=== PATIENT | female | born 1960 | race African-American/Black ===

== ENCOUNTER 2020-10-25 23:06 | Inpatient (IN) | payer OTHER ==
[~2020-10-25] VITALS: Ht 182.9 cm; Wt 102.1 kg
[~2020-10-25 23:06] MED LIST: ALBU6.7H9 INH; ATOR10TA MT; FLUT1DIS3 INH; GABA-529 MT; LEVOTHYROXINE PO; PHEN100C4 PO; PRED10TA PO; PROM6.254 MT; QUET100T MT; TRAZ-251 MT
[2020-10-25] MEDS ORDERED: IPRATROPIUM BROMIDE (0.02%) 0.5MG/2.5ML NEB HHN STA (23:27)
[2020-10-25] MEDS ORDERED: ALBUTEROL (0.083%) 2.5MG/3ML NEB HHN STA (23:27)
[2020-10-25] MEDS ORDERED: METHYLPREDNISOLONE SOD SUCC 125 MG/2 ML VIAL IV STA (23:27)
[2020-10-25] MEDS ORDERED: MAGNESIUM 2 G PREMIX 50 ML IV ONE (23:30)
[2020-10-25] MEDS ORDERED: ASPIRIN 81MG TABLET PO ONE (23:30)
[2020-10-26 00:06] LABS: BASOPHILS % 0.6 % (0.0-2.0); EOSINOPHILS % 2.1 % (0.0-5.0); HEMATOCRIT. 40.4 % (36.0-48.0); HEMOGLOBIN. 13.9 g/dL (12.0-16.0); LYMPHOCYTES % 39.2 % (20.0-50.0); MEAN CORPUSCULAR HEMOGLOBIN 30.7 pg (28.0-32.0); MEAN CORPUSCULAR VOLUME 89.2 fL (81.0-99.0); MEAN PLATELET VOLUME 7.4 fl (7.4-10.4); MONOCYTES % 6.1 % (2.0-8.0); PLATELET 277 x1000/uL (130-400); RED BLOOD CELL COUNT 4.53 mill/uL (4.2-5.4); RED CELL DISTRIBUTION WIDTH 12.9 % (11.6-14.6)
[2020-10-26 00:13] LABS: CHLORIDE 110 mEq/L (98-107)
[2020-10-26] MEDS ORDERED: DOCUSATE SODIUM 100MG CAPSULE PO PRN (09:15)
[2020-10-26] MEDS ORDERED: ACETAMINOPHEN 325MG TABLET PO PRN ×2 (09:15)
[2020-10-26] MEDS ORDERED: CLONIDINE 0.1MG TABLET PO PRN (09:15)
[2020-10-26] MEDS ORDERED: LORAZEPAM 0.5MG TABLET PO PRN (09:15)
[2020-10-26] MEDS ORDERED: ONDANSETRON HCL 4MG/2ML INJ IV PRN (09:15)
[2020-10-26] MEDS ORDERED: HYDROCODONE/ACETAMINOPHEN 5/325MG TABLET PO PRN (09:15)
[2020-10-26] MEDS ORDERED: IPRATROPIUM/ALBUTEROL 0.5-3(2.5)MG/3ML NEB HHN PRN (09:15)
[2020-10-26] MEDS ORDERED: METHYLPREDNISOLONE SOD SUCC 40 MG/ML VIAL IV SCH (10:00)
[2020-10-26 13:13] VITALS: BP 118/75
[2020-10-26] MEDS ORDERED: NICOTINE 14MG PATCH TD SCH (14:00)
[2020-10-26] MEDS ORDERED: LEVOTHYROXINE SODIUM 175MCG TABLET PO SCH ×2 (14:00→15:00)
[2020-10-26] MEDS ORDERED: GABAPENTIN 100MG CAPSULE PO SCH (14:00)
[2020-10-26] MEDS ORDERED: PHENYTOIN SODIUM EXTENDED 100MG CAPSULE PO SCH (21:00)
[2020-10-26] MEDS ORDERED: QUETIAPINE FUMARATE 50MG TABLET PO SCH (21:00)
[2020-10-26] MEDS ORDERED: ATORVASTATIN CALCIUM 10MG TABLET PO SCH (21:00)
[2020-10-26] MEDS ORDERED: TRAZODONE HCL 50MG TABLET PO SCH (21:00)
[2020-10-27 09:01] LABS: BG SAMPLE SITE Right Radial
[2020-10-27 09:02] LABS: BG VENT MODE NASAL CANNULA
[2020-10-27 09:03] LABS: BG FRACTION INSPIRED OXYGEN 36; BG HCO3 ACT 25.2 mmol/L (22.0-26.0); BG PCO2 39.8 mmHg (35.0-45.0); BG PH 7.419 (7.350-7.450); BG PO2 72.8 mmHg (75.0-100.0)
[2020-10-27 09:04] LABS: BG BASE EXCESS 0.7 mmol/L (-2.0-2.0); BG OXYGEN SATURATION 95.1 % (92.0-98.5); BG OXYHEMOGLOBIN 89.8 % (94.0-97.0); BG TOTAL HEMOGLOBIN 13.9 g/dL (12.0-18.0)
[2020-10-27 09:05] LABS: BG CARBOXYHEMOGLOBIN 5.3 % (0.5-1.5); BG DEOXYHEMOGLOBIN 4.6 % (0.0-5.0); BG METHEMOGLOBIN 0.3 % (0.0-1.5)
== END 2020-10-26 15:00 | disposition left against medical advice (07) | DRG 144 ==
LOC: ER 23:06 → 5WST 10-26 05:31 → EDBEDREQ 10-26 05:38 → EDBEDREQTM 10-26 05:38 → ENRESERV 10-26 07:15
PROVIDERS: ADMIT Internal Medicine; ATTEND Internal Medicine
DX: J68.0 Bronchitis and pneumonitis due to chemicals, gases, fumes and vapors (principal); J96.00 Acute respiratory failure, unspecified whether with hypoxia or hypercapnia; E03.9 Hypothyroidism, unspecified; E66.9 Obesity, unspecified; E04.2 Nontoxic multinodular goiter; F41.9 Anxiety disorder, unspecified; I10 Essential (primary) hypertension; Z68.30 Body mass index [BMI] 30.0-30.9, adult; Z72.0 Tobacco use; Z79.51 Long term (current) use of inhaled steroids; Z79.899 Other long term (current) drug therapy; Z71.6 Tobacco abuse counseling
CPT/HCPCS: 36415; 36600; 71045; 80053; 82375; 82805; 83880; 84484; 85025; 93005; 99285; J2920; J2930; J3475

== ENCOUNTER 2023-09-08 18:33 | Emergency (ER) | payer OTHER ==
[~2023-09-08] VITALS: Ht 182.9 cm; Wt 104.0 kg
[~2023-09-08 18:33] MED LIST changes: +ALBU6.7H3 INH; -ALBU6.7H9 INH; +PROM6.2527 MT; -PROM6.254 MT
[2023-09-09] MEDS ORDERED: IPRATROPIUM/ALBUTEROL 0.5-3(2.5)MG/3ML NEB HHN ONE
[2023-09-09] MEDS ORDERED: ALBUTEROL (0.083%) 2.5MG/3ML NEB HHN ONE
[2023-09-09] MEDS ORDERED: PREDNISONE 20MG TABLET PO ONE
[2023-09-09] MEDS: ALBUTEROL (0.083%) 2.5MG/3ML NEB HHN NR (02:30)
[2023-09-09 02:36] VITALS: PULSE 88; RESP 18; O2SAT 93
[2023-09-09] MEDS: IPRATROPIUM/ALBUTEROL 0.5-3(2.5)MG/3ML NEB HHN NR (02:36)
[2023-09-09] MEDS: PREDNISONE 20MG TABLET PO NR (03:45)
[2023-09-09 08:00] VITALS: BP 138/79; PULSE 85; RESP 18; TEMP 98.6
== END 2023-09-09 16:30 | disposition left against medical advice (07) ==
LOC: ER 18:33
DX: J44.9 Chronic obstructive pulmonary disease, unspecified (principal); F17.200 Nicotine dependence, unspecified, uncomplicated; Z98.890 Other specified postprocedural states
CPT/HCPCS: 99283; 71045; 94640; 93005; J7512; Z7610 ×3

== ENCOUNTER 2023-09-11 16:13 | Emergency (ER) | payer OTHER | END 2023-09-11 18:35 | disposition left against medical advice (07) | LOC: ER 16:13 | DX: R68.89 Other general symptoms and signs (principal); Z53.21 Procedure and treatment not carried out due to patient leaving prior to being seen by health care provider ==

== ENCOUNTER 2023-09-29 17:37 | Emergency (ER) | payer OTHER ==
[~2023-09-29] VITALS: Ht 172.7 cm; Wt 100.0 kg
[2023-09-29 17:38] VITALS: O2SAT 98
[2023-09-29 17:44] VITALS: TEMP 98.6
[2023-09-29 18:25] LABS: BASOPHILS % 0.9 % (0.0-2.0); EOSINOPHILS % 0.6 % (0.0-5.0); HEMOGLOBIN. 12.5 g/dL (12.0-16.0); LYMPHOCYTES % 22.1 % (20.0-50.0); MEAN CORPUSCULAR HEMOGLOBIN 30.5 pg (28.0-32.0); MEAN CORPUSCULAR HGB CONC 33.8 g/dL (31.0-37.0); MEAN CORPUSCULAR VOLUME 90.3 fL (81.0-99.0); MEAN PLATELET VOLUME 6.9 fl (7.4-10.4); MONOCYTES % 6.1 % (2.0-8.0); NEUTROPHILS % 70.3 % (40.0-76.0); PLATELET 568 x1000/uL (130-400); RED BLOOD CELL COUNT 4.09 mill/uL (4.2-5.4); RED CELL DISTRIBUTION WIDTH 13.5 % (11.6-14.6); WHITE BLOOD COUNT 6.9 x1000/uL (4.5-11.0)
[2023-09-29 18:30] LABS: CHLORIDE 104 mEq/L (98-107); POTASSIUM 4.3 mEq/L (3.5-5.1); SODIUM 139 mEq/L (136-145)
[2023-09-29 18:31] LABS: CALCIUM 10.4 mg/dL (8.7-10.4); CARBON DIOXIDE 28 mEq/L (21-32)
[2023-09-29 18:36] LABS: CREATININE 0.8 mg/dL (0.6-1.0); GLUCOSE 101 mg/dL (70-105); UREA NITROGEN BLOOD 14 mg/dL (9-23)
[2023-09-29] MEDS ORDERED: APIX5TAB MT (21:39)
[2023-09-29] MEDS ORDERED: ALBU6.7H15 INH (21:39)
[2023-09-29 22:17] VITALS: BP 118/88; PULSE 93; RESP 17
== END 2023-09-30 00:57 | disposition home or self-care (01) ==
LOC: ER 17:37
DX: J44.1 Chronic obstructive pulmonary disease with (acute) exacerbation (principal); I82.501 Chronic embolism and thrombosis of unspecified deep veins of right lower extremity; F17.210 Nicotine dependence, cigarettes, uncomplicated; Z79.899 Other long term (current) drug therapy
CPT/HCPCS: 36415; 71045; 80048; 85025; 93005; 99285; 99406

== ENCOUNTER 2023-09-30 01:38 | Emergency (ER) | payer OTHER ==
[~2023-09-30] VITALS: Ht 182.9 cm; Wt 92.0 kg
[~2023-09-30 01:38] MED LIST changes: +ALBU6.7H15 INH; +APIX5TAB MT
[2023-09-30 01:43] VITALS: BP 136/77; PULSE 98; RESP 16; TEMP 98; O2SAT 96
== END 2023-09-30 07:40 | disposition home or self-care (01) ==
LOC: ER 01:38
DX: I82.591 Chronic embolism and thrombosis of other specified deep vein of right lower extremity (principal); J44.9 Chronic obstructive pulmonary disease, unspecified; F19.90 Other psychoactive substance use, unspecified, uncomplicated
CPT/HCPCS: 99281

== ENCOUNTER 2023-09-30 11:34 | Emergency (ER) | payer OTHER ==
[~2023-09-30] VITALS: Ht 172.7 cm; Wt 75.0 kg
[2023-09-30 11:37] VITALS: BP 142/86; PULSE 100; TEMP 98.4; O2SAT 98
[2023-09-30 12:36] LABS: BASOPHILS % 0.5 % (0.0-2.0); EOSINOPHILS % 1.8 % (0.0-5.0); HEMATOCRIT. 38.1 % (36.0-48.0); HEMOGLOBIN. 13.1 g/dL (12.0-16.0); LYMPHOCYTES % 33.1 % (20.0-50.0); MEAN CORPUSCULAR HEMOGLOBIN 30.5 pg (28.0-32.0); MEAN CORPUSCULAR HGB CONC 34.4 g/dL (31.0-37.0); MEAN CORPUSCULAR VOLUME 88.6 fL (81.0-99.0); MEAN PLATELET VOLUME 6.5 fl (7.4-10.4); NEUTROPHILS % 55.6 % (40.0-76.0); PLATELET 547 x1000/uL (130-400); RED CELL DISTRIBUTION WIDTH 13.5 % (11.6-14.6)
[2023-09-30 12:41] LABS: CHLORIDE 105 mEq/L (98-107); SODIUM 139 mEq/L (136-145)
[2023-09-30 12:42] LABS: CALCIUM 10.5 mg/dL (8.7-10.4); CARBON DIOXIDE 26 mEq/L (21-32)
[2023-09-30 12:47] LABS: CREATININE 0.6 mg/dL (0.6-1.0); GLUCOSE 101 mg/dL (70-105); UREA NITROGEN BLOOD 10 mg/dL (9-23)
[2023-09-30 12:49] LABS: ALANINE AMINOTRANSFERASE 33 IU/L (10-49); ASPARTATE AMINOTRANSFERASE 27 IU/L (<34); BILIRUBIN TOTAL 0.5 mg/dL (0.1-1.0)
[2023-09-30 12:54] LABS: TROPONIN I HIGH SENSITIVITY < 4 ng/L (3.0-34)
[2023-09-30] MEDS: ACETAMINOPHEN 325MG TABLET PO ONE (14:49)
[2023-09-30 15:30] VITALS: RESP 17
== END 2023-09-30 15:53 | disposition home or self-care (01) ==
LOC: ER 11:36
DX: I82.401 Acute embolism and thrombosis of unspecified deep veins of right lower extremity (principal); J44.9 Chronic obstructive pulmonary disease, unspecified; Z79.899 Other long term (current) drug therapy
CPT/HCPCS: 36415; 80053; 84484; 85025; 93971; 99284

== ENCOUNTER 2023-10-03 01:55 | Emergency (ER) | payer OTHER ==
[~2023-10-03] VITALS: Ht 180.3 cm; Wt 82.0 kg
[2023-10-03 02:24] VITALS: BP 114/64; PULSE 88; RESP 18; TEMP 98.2; O2SAT 98
[2023-10-03 03:32] LABS: BASOPHILS % 1.3 % (0.0-2.0); EOSINOPHILS % 3.2 % (0.0-5.0); HEMATOCRIT. 36.6 % (36.0-48.0); HEMOGLOBIN. 12.5 g/dL (12.0-16.0); LYMPHOCYTES % 39.2 % (20.0-50.0); MEAN CORPUSCULAR HEMOGLOBIN 30.4 pg (28.0-32.0); MEAN CORPUSCULAR HGB CONC 34.2 g/dL (31.0-37.0); MEAN CORPUSCULAR VOLUME 88.9 fL (81.0-99.0); MEAN PLATELET VOLUME 6.9 fl (7.4-10.4); MONOCYTES % 9.6 % (2.0-8.0); NEUTROPHILS % 46.7 % (40.0-76.0); PLATELET 485 x1000/uL (130-400); RED BLOOD CELL COUNT 4.11 mill/uL (4.2-5.4); RED CELL DISTRIBUTION WIDTH 13.4 % (11.6-14.6); WHITE BLOOD COUNT 7.7 x1000/uL (4.5-11.0)
[2023-10-03 03:36] LABS: CHLORIDE 108 mEq/L (98-107); POTASSIUM 3.5 mEq/L (3.5-5.1); SODIUM 140 mEq/L (136-145)
[2023-10-03 03:37] LABS: CARBON DIOXIDE 25 mEq/L (21-32)
[2023-10-03 03:38] LABS: CALCIUM 9.6 mg/dL (8.7-10.4)
[2023-10-03 03:42] LABS: CREATININE 0.6 mg/dL (0.6-1.0); GLUCOSE 98 mg/dL (70-105); UREA NITROGEN BLOOD 12 mg/dL (9-23)
== END 2023-10-03 06:15 | disposition home or self-care (01) ==
LOC: ER 01:55
DX: I82.401 Acute embolism and thrombosis of unspecified deep veins of right lower extremity (principal); J44.1 Chronic obstructive pulmonary disease with (acute) exacerbation; Z79.899 Other long term (current) drug therapy
CPT/HCPCS: 36415; 80048; 85025; 93971; 99284

== ENCOUNTER 2025-04-05 12:09 | Emergency (ER) | payer MEDICAID, MEDICARE ==
[~2025-04-05] VITALS: Ht 175.3 cm; Wt 70.0 kg
[2025-04-05 12:11] VITALS: O2SAT 98
[2025-04-05] MEDS: ACETAMINOPHEN 325MG TABLET PO ONE (13:02)
[2025-04-05] MEDS ORDERED: IBUP-1455 MT (15:10)
[2025-04-05] MEDS ORDERED: AMOX1TAB16 MT (15:10)
[2025-04-05] MEDS ORDERED: AZIT250T12 MT (15:10)
[2025-04-05] MEDS ORDERED: METH-653 MT (15:11)
[2025-04-05] MEDS: KETOROLAC 30MG/ML VIAL IM ONE (15:27)
[2025-04-05] MEDS: METHOCARBAMOL 500MG TABLET PO ONE (15:27)
[2025-04-05 16:19] LABS: INFLUENZA TYPE A Presumptive Negative (Pres. Neg.)
[2025-04-05 16:20] LABS: INFLUENZA TYPE B Presumptive Negative (Pres. Neg.)
[2025-04-05 16:21] LABS: RESPIRATORY SYNCYTIAL VIRUS Not Detected (Not Detectd)
[2025-04-05 16:47] VITALS: BP 122/77; PULSE 89; RESP 18; TEMP 36.6; O2SAT 100
== END 2025-04-05 17:00 | disposition home or self-care (01) ==
LOC: ER 12:40
DX: J44.0 Chronic obstructive pulmonary disease with (acute) lower respiratory infection (principal); Z20.822 Contact with and (suspected) exposure to COVID-19; Z79.51 Long term (current) use of inhaled steroids; Z79.01 Long term (current) use of anticoagulants; Z79.899 Other long term (current) drug therapy; Z98.890 Other specified postprocedural states
CPT/HCPCS: 99284; 71045; 87426; 87420; 87804 ×2; 96372; J1885